=== PATIENT | female | born 2000 | race Two or more races ===

== ENCOUNTER 2025-08-10 19:50 | Emergency (ER) | payer MEDICAID, OTHER ==
[~2025-08-10] VITALS: Ht 157.5 cm; Wt 90.9 kg
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
[2025-08-10 22:48] VITALS: BP 122/85; PULSE 84; RESP 17; TEMP 98.2; O2SAT 95
== END 2025-08-10 22:48 | disposition home or self-care (01) ==
LOC: ER 19:50
DX: M25.562 Pain in left knee (principal); M25.561 Pain in right knee; M25.522 Pain in left elbow; V43.52XA Car driver injured in collision with other type car in traffic accident, initial encounter; Y92.410 Unspecified street and highway as the place of occurrence of the external cause; Y93.89 Activity, other specified; Y99.8 Other external cause status
CPT/HCPCS: 73080; 73562